=== PATIENT | male | born 1985 | race Hispanic/Latino ===

== ENCOUNTER 2025-05-29 18:58 | Emergency (ER) | payer SELFPAY ==
[~2025-05-29] VITALS: Ht 180.3 cm; Wt 90.7 kg
--- NOTE | 2025-05-29 20:13 | ERN ---
ED Note History of Present Illness Stated Complaint: RT SPRAINED ANKLE Chief Complaint: Ankle Problem Time Seen by MD: 19:04 Time Seen by Midlevel: 19:04 Dictation: The patient is a 39-year-old male with no past medical history who presents to the emergency department with complaints of right ankle pain after he accidentally stepped on a hole and twisted his ankle. Patient denies any other injuries. Allergies: Coded Allergies: No Known Allergies (Unverified Allergy, Unknown, 05/29/25) Past Medical History Past Medical History: No Pertinent History Surgical History: None RN Note Reviewed/Agreed w/PFSH: Yes Review of System Dictation Constitutional: Negative for fever,chills, and weight loss Eyes: Negative for injury, pain,redness, and discharge ENT: Negative for injury,pain or swelling Cardiovascular: Negative for chest pain, palpitations, and edema Respiratory: Negative for shortness of breath, cough, and wheezing, Abdomen/GI: Negative for abdominal pain, nausea, vomiting, diarrhea, and con stipation Back: Negative for injury and pain : Negative for injury, bleeding and discharge MS/Extremity: Positive for right ankle injury Skin: Negative for rash, and discoloration Neuro: Negative for headache, weakness, numbness, tingling, and seizure Psych: Negative for suicide ideation, homicidal ideation, and hallucinations Initial Vital Sign VS Vital Signs Date Time Temp Pulse Resp B/P (MAP) Pulse Ox O2 Delivery O2 Flow Rate FiO2 05/29/25 18:59 98.1 106 20 145/78 97 Room Air 05/29/25 19:30 0 21 Physical Exam Dictation Vital Signs reviewed General Appearance: Alert, oriented x 3, no acute distress, well developed, nourished. Head and Face: non-traumatic. Eyes: PERRL, pink conjunctivas, eyelid no trauma, anterior chamber with arcus senilis. Ears: Pinnas intact and no signs of trauma or erythema ear canals clear and no discharge TM no erythema Nose: No discharge, no bleeding. Oropharynx: Mouth normal, tongue pink. pharynx clear,no erythema, tonsils no exudates, no abscesses noted, mucous membrane moist Neck: Supple, non-tender, no thyromegaly, no masses, no JVD, no bruits Breast:Deferred Chest:No tenderness, no crepitus, no paradoxical movement, no retractions Lungs:Clear, well-ventilated, symmetric, no rales, no wheezing, no rhonchi, no stridor, good breath sounds bilaterally Heart: Regular rate, regular rhythm, no murmur, no gallops Vascular: no peripheral edema, dorsalis pedis 3+ bilaterally Abdomen: Soft, positive bowel sounds, nondistended, no guarding, nontender, no rebound, no masses no hepatomegaly, no splenomegaly, no Alanis's sign, no hernias. Rectal: Deferred Genital: Deferred Neurological: Normal speech, motor function intact, sensory function intact Musculoskeletal: Neck nontender, full range of motion, back nontender, full range of motion, Extremities: nontender, full range of motion mild swelling to right foot, no open wounds, cap refill less than 2 seconds Skin: Color pink, dry, no turgor, no rash, no lacerations, no abrasions, no contusions. Lymphatic: Deferred Results (Laboratory/Radiology) Laboratory/Radiology REASON: pain injury ORDERING PHYSICIAN: MARCEL MIXON [employer] LEADER PROCEDURE: FT 3VW RT - FOOT COMP 3+VWS RT CLINICAL INFORMATION Pain, injury COMPARISON None. TECHNIQUE 3 view right foot FINDINGS Bones: No acute fracture. No destructive osseous abnormality. Corticated ossicles over the dorsal metastatic, compatible sequelae of old injury. Alignment: Normal. Joints: Normal. Soft Tissues: Circumferential soft tissue swelling. IMPRESSION No acute bony findings. Circumferential soft tissue swelling. /[place] REASON: pain injury ORDERING PHYSICIAN: MARCEL MIXON [employer] LEADER PROCEDURE: [id number] - ANKLE COMP 3VWS RT CLINICAL INFORMATION Pain, injury COMPARISON None. TECHNIQUE 3 view right ankle FINDINGS Bones: No acute fracture. No destructive osseous abnormality. Corticated ossicles over the dorsal metastatic, compatible sequelae of old injury. Alignment: Normal. Joints: Normal. Soft Tissues: Circumferential soft tissue swelling. IMPRESSION No acute bony findings. Circumferential soft tissue swelling. /[place] Labs Reviewed?: Yes ED Course ED Course Orders Procedure Category Date Status Time Ankle Comp 3vws Rt RAD 05/29/25 Resulted 19:11 Foot Comp 3+Vws Rt RAD 05/29/25 Resulted 19:11 Ketorolac 60mg/2ml PHA 05/29/25 In Process (Toradol 60mg/2ml) 19:30 Current Medications Medications (Trade) Dose Ordered Sig/Tejinder Route PRN Reason Start Time Stop Time Status Last Admin Dose Admin Ketorolac Tromethamine (toRADol 60MG/ 2ML) 60 mg ONCE IM 05/29/25 19:30 05/29/25 23:30 05/29/25 19:22 Vital Signs Date Time Temp Pulse Resp B/P (MAP) Pulse Ox O2 Delivery O2 Flow Rate FiO2 05/29/25 20:38 98.1 88 16 140/70 98 Room Air* 0 21 05/29/25 19:30 98.1 96 16 142/75 98 Room Air* 0 21 05/29/25 18:59 98.1 106 20 145/78 97 Room Air Medical Decision Making MDM The patient is a 39-year-old male with no past medical history who presents to the emergency department with complaints of right ankle pain after he accidentally stepped on a hole and twisted his ankle. Patient denies any other injuries. X-ray showed no acute fractures or dislocations. Patient neurovascularly intact. We will Mason wrap and instruct patient to follow up with the orthopedic. Patient in no acute distress, nontoxic appearance. Differential diagnosis: Foot fracture, ankle fracture, ankle sprain Need for hospitalization: Patient does not meet criteria for hospitalization. There are no social concerns with this patient. DX & DISP Disposition: Discharge Departure Impression: Primary Impression: Right ankle sprain Condition: Stable Scripts Ibuprofen (Ibuprofen) 600 Mg Tablet 600 MG PO Q6H PRN for PAIN, #15 TAB Prov: DI MIXONLEN [employer] LEADER 05/29/25 Additional Instructions: Your x-ray showed no fractures. Please follow up with your primary doctor in 1- 2 days. Rest avoid activities that cause pain. Ice- apply cold pack, bag of ice, or bag of frozen vegetables on your extremity every 1-2 hours for 15 minutes each time. Put a thin towel between the ice and your skin. Use the ice for at least 6 hours after your injury. Compression - you want to have your extremity under slight pressure by having it wrapped in an elastic bandage. This helps reduce swelling and supports the injured extremity. Elevation - keep your extremity raised above the level of your heart. To do this you can put some foot on some pillows or blankets while laying down on the table or chair where sitting down. FOLLOW-UP WITH PRIMARY CARE PROVIDER IN 1 TO 2 DAYS. TAKE MEDICATIONS DIRECTED HERE IN THE EMERGENCY ROOM. OKAY TO CONTINUE HOME MEDICATIONS UNLESS OTHERWISE DISCUSSED DURING YOUR VISIT IN THE EMERGENCY ROOM TODAY. RETURN TO YOUR NEAREST EMERGENCY ROOM IF SYMPTOMS WORSEN OR IF THERE IS NO IMPROVEMENT. CALL 911 IF YOU NEED IMMEDIATE ASSISTANCE. TAKE TYLENOL [id number] NEEDED AND IF NO CONTRAINDICATIONS ARE PRESENT. INCREASE ORAL HYDRATION. A WOUND CULTURE OR URINE CULTURE WAS ORDERED HERE IN THE EMERGENCY ROOM DEPARTMENT PLEASE FOLLOW-UP WITH PRIMARY CARE PROVIDER AND ADVISE THEM TO GET REPEAT PORTS FROM OUR FACILITY. IF YOU HAD ANY [place] WRAP/SPLINTS THAT WERE APPLIED HERE, PLEASE DO NOT REMOVE THEM UNTIL YOU SEE YOUR PRIMARY CARE OR SPECIALTY. Referrals: ROXANNE OLEA MD Time of Disposition: 20:47 I have reviewed the case, and I agree with, Diagnosis and Plan MARCEL MIXON [facility] May 29, 2025 20:13
[2025-05-29 20:38] VITALS: BP 140/70; PULSE 88; RESP 16; TEMP 98.1; O2SAT 98
--- NOTE | 2025-05-29 20:41 | HMCIMG ---
CLINICAL INFORMATION Pain, injury COMPARISON None. TECHNIQUE 3 view right ankle FINDINGS Bones: No acute fracture. No destructive osseous abnormality. Corticated ossicles over the dorsal metastatic, compatible sequelae of old injury. Alignment: Normal. Joints: Normal. Soft Tissues: Circumferential soft tissue swelling. IMPRESSION No acute bony findings. Circumferential soft tissue swelling. /[place]
--- NOTE | 2025-05-29 20:41 | HMCIMG ---
CLINICAL INFORMATION Pain, injury COMPARISON None. TECHNIQUE 3 view right foot FINDINGS Bones: No acute fracture. No destructive osseous abnormality. Corticated ossicles over the dorsal metastatic, compatible sequelae of old injury. Alignment: Normal. Joints: Normal. Soft Tissues: Circumferential soft tissue swelling. IMPRESSION No acute bony findings. Circumferential soft tissue swelling. /[place]
[2025-05-29] MEDS ORDERED: IBUP-2070 PO (20:48)
== END 2025-05-29 21:04 | disposition home or self-care (01) ==
LOC: EDH 18:58
DX: S93.401A Sprain of unspecified ligament of right ankle, initial encounter (principal); X50.1XXA Overexertion from prolonged static or awkward postures, initial encounter; Y93.89 Activity, other specified; Y92.89 Other specified places as the place of occurrence of the external cause; Y99.8 Other external cause status
CPT/HCPCS: 99284; 73610; 73630; 96372; J1885